=== PATIENT | female | born 1990 | race Caucasian/White ===

== ENCOUNTER 2021-03-19 19:29 | Emergency (ER) | payer OTHER, SELFPAY ==
[2021-03-19 19:38] VITALS: BP 139/105; PULSE 122; RESP 16; TEMP 36.7; O2SAT 99
--- NOTE | 2021-03-19 19:50 | ED.UPPEXIN ---
HPI - Extremity Injury (Upper) General Chief Complaint: Extremity Injury, Upper Stated Complaint: right shoulder Time Seen by Provider: 03/19/21 19:50 Source: patient Mode of arrival: ambulatory Limitations: no limitations History of Present Illness HPI narrative: Yaneli Mckeon is a 30 yo female complaining of left posterior shoulder pain x1 month. She states she started a new job involves lifting and has aggravated an old injury; pain is 8 out of 10, can't raise arm over head without pain Related Data Allergies Allergy/AdvReac Type Severity Reaction Status Date / Time PEACHES Allergy Uncoded 03/19/21 19:40 Review of Systems Review of Systems: Narrative: CONSTITUTIONAL: Denies fever, chills, sweats. EYES: Denies visual changes, redness, discharge. ENT: Denies rhinorrhea, congestion, sore throat, otalgia. CARDIOVASCULAR: Denies chest pain, palpitations, edema. RESPIRATORY: Denies dyspnea, wheezing, cough GASTROINTESTINAL: Denies abdominal pain, nausea, vomiting, diarrhea. GENITOURINARY: Denies dysuria, hematuria, abnormal discharge SKIN: Denies rash or itching. NEUROLOGIC: Denies numbness, or focal weakness. PSYCHIATRIC: Denies anxiety or depression. Left shoulder posterior pain-exacerbation of pain that started a month ago PMFSH Past Medical History Medical History No acute medical problems Family History Family History Other No acute medical problems Social History Social History (Updated 03/19/21 @ 19:54 by Leeanna Elizabeth CNP) Smoking packs per day: 0.5 Smoking cigarettes per day: 10.0 Smoking status: Current every day smoker Tobacco type: cigarettes Alcohol intake: current Gender identity (if verbalized by the patient): Female Comments At time of signature, I agree with nursing past medical, surgical, social and family history. There is no relevant family history pertinent to the presenting complaint. Patient's blood pressure is elevated tonight-from pain but should follow-up with primary care physician in the next week Exam Narrative: Exam Narrative: GENERAL: This is a well-nourished, well-developed patient, in moderate distress. HEAD: normocephalic, atraumatic. EYES: Sclera clear/white. Vision is grossly intact. EARS: External ears normal, Hearing grossly intact. NOSE: External nose normal without nasal discharge, nares without redness, no rhinorrhea. THROAT: Mucous membranes moist, NECK: Neck supple, non-tender CARDIOVASCULAR: Regular rate and rhythm without murmurs, gallops, or rubs. RESPIRATORY: Clear to auscultation. Breath sounds equal bilaterally. No wheezes, rales, or rhonchi. GASTROINTESTINAL: Abdomen soft, non-tender, SKIN: warm, intact with no suspicious lesions or rash, good texture and turgor. NEURO: awake, alert, and oriented to person, place and time. There were no obvious focal neurologic abnormalities. Steady gait EXTREMITIES: Limited range of motion. Left posterior shoulder pain unable to raise arm above 90 degrees overreaction to palpation to posterior rotator cuff but is also tender at the top of trapezius BACK: Nontender without deformity Course Course Emergency Course: Yaneli Mckeon is a 30-year-old female, with poor personal hygiene, who [facility] with posterior left shoulder pain with that has started 1 month ago her current new job exacerbated shoulder pain Started on baclofen 10 mg and 2 at this 2 Tylenol that she has at home Given work excuse for 2 days-should follow-up with primary care physician regarding shoulder pain and also blood pressure Vital Signs Vital signs: Vital Signs Temperature 98.1 F 03/19/21 19:38 Pulse Rate 122 H 03/19/21 19:38 Respiratory Rate 16 03/19/21 19:38 Blood Pressure 139/105 H 03/19/21 19:38 Pulse Oximetry 99 03/19/21 19:38 Temperature 98.1 F 03/19/21 19:38 Pulse Rate 122 H 03/19/21
[2021-03-19 20:03] VITALS: BP 125/87; PULSE 97
== END 2021-03-19 20:03 | disposition home or self-care (01) ==
PROVIDERS: Emergency Provider Nurse Practitioner
DX: S46.912A Strain of unspecified muscle, fascia and tendon at shoulder and upper arm level, left arm, initial encounter (principal); X50.0XXA Overexertion from strenuous movement or load, initial encounter; Y99.0 Civilian activity done for income or pay
CPT/HCPCS: 99213; G0463

== ENCOUNTER 2021-06-03 | Inpatient (IN) | payer OTHER, SELFPAY ==
--- NOTE | ~2021-06-03 | CT_ITS ---
EXAMINATION: CT facial bones w con DATE: 06/03/2021 02:02 INDICATION: Facial swelling. TECHNIQUE: Computed tomography (CT) of the facial bones and maxillofacial region was performed with 7 5 mL Omnipaque 350 intravenous contrast. Automated exposure control and iterative reconstruction tech [employer] were employed. The dose-length product was 394.80 mGy-cm. COMPARISON: None. FINDINGS: There is soft tissue swelling of right face. There are no pathologically enlarged lymph nod es. The orbits are normal. There is mucosal thickening in the paranasal sinuses and dependent fluid i n left maxillary sinus. There is extensive dental disease. There is a 2.0 x 0.4 x 1.4 cm periosteal a bscess adjacent to tooth 5. There is a tooth fragment in the area of the right maxillary molars. Teet h 1-3 are otherwise absent. There are carious lesions of teeth 4, 5, 6, 7, 8, 9, 10, 11, and 12. Teet h 14-16 are absent. There are periapical lucencies adjacent to 5, 6, 7, and 8. Teeth 17 and 18 are ab sent. There are carious lesions of 19, 20, 21, 23, 25, 26, 27, 28, 29, 30, and 31. There are periapic al lucencies of 19, 20, 21, 23, 28, 29, 30, and 31. Tooth 32 is absent. IMPRESSION: 1. Extensive dental disease with 2.0 x 0.4 x 1.4 cm subperiosteal abscess adjacent to tooth #5. Reviewed, dictated and finalized at location A. IMPRESSION: 1. Extensive dental disease with 2.0 x 0.4 x 1.4 cm subperiosteal abscess adjac ent to tooth #5.
--- NOTE | ~2021-06-03 | CT_ITS ---
EXAMINATION: CT facial bones wo con DATE: 06/04/2021 13:46 INDICATION: Dental abscess. Increased swelling. TECHNIQUE: Computed tomography (CT) of the facial bones was performed without intravenous contrast. T he dose-length product was 264.12 mGy-cm. Automated exposure control and iterative reconstruction sakina hnique were employed. COMPARISON: CT dated 06/03/2021 FINDINGS: Study is extremely limited due to lack of contrast. There is extensive dental disease as de scribed in more detail on prior examination with soft tissue swelling of the right face which has inc reased compared with prior examination. There are developing right submandibular and right internal j ugular lymph nodes, likely reactive. The subperiosteal abscess seen on prior examination is not defin itely changed from prior study allowing for lack of contrast. The fatty infiltration extends below th e level of the mandible on the current study. There is maxillary, ethmoid and sphenoid sinusitis. IMPRESSION: 1. Progression of right facial cellulitis extending inferiorly below the level of the mandible on the current study. 2: No significant change to right subperiosteal abscess adjacent tooth #5 allowing f or lack of contrast. 3: Developing lymphadenopathy, likely reactive. Reviewed, dictated and finalized at location A. IMPRESSION: 1. Progression of right facial cellulitis extending inferiorly below the level of the mandible on the current study. 2: No significant change to right subper iosteal abscess adjacent tooth #5 allowing for lack of contrast. 3: Developing lymphadenopathy, likely reactive.
[2021-06-03 00:09] VITALS: BP 123/89; PULSE 111; RESP 19; TEMP 37.1; O2SAT 100
[2021-06-03] MEDS: AMPICILLIN SULB 3 GM/NS 100 ML 3 GM/100 ML VIAL IVPB ×4 (00:57→17:34)
[2021-06-03 01:05] LABS: Basophils Absolute Auto 0.1 K/mm3 (0.0-0.1); Basophils Percent Auto 0.5 % (0.2-1.2); Eosinophils Absolute Auto 0.6 K/mm3 (0-0.3); Eosinophils Percent Auto 5.8 % (0-4.4); Hematocrit 41.3 % (37.0-47.0); Immature Granulocyte Absolute 0.03 K/mm3 (0.00-0.031); Immature Granulocyte Percent A 0.3 % (0-0.5); Lymphocytes Absolute Auto 1.74 K/mm3 (0.9-3.2); Lymphocytes Percent Auto 16.1 % (18.3-44.2); Mean Corpuscular HGB Conc 33.9 g/dl (32-36); Mean Corpuscular Hemoglobin 31.9 pg (26-34); Mean Corpuscular Volume 94.1 fl (80-100); Mean Platelet Volume 10.5 fl (7.4-10.4); Monocytes Absolute Auto 0.5 K/mm3 (0.1-0.6); Monocytes Percent Auto 4.7 % (2.6-8.5); Neutrophils Absolute Auto 7.9 K/mm3 (1.3-6.7); Neutrophils Percent Auto 72.6 % (45.5-73.1); Platelet Count Result 213 k/mm3 (150-375); Red Blood Count 4.39 M/mm3 (4.2-5.4); Red Cell Distribution Width 11.9 % (11.5-14.5); White Blood Count 10.8 K/mm3 (4.5-10.0)
[2021-06-03 01:29] LABS: INR 0.9; Prothrombin Time 12.4 Seconds (11.1-14.7)
[2021-06-03 01:37] LABS: Alanine Aminotransferase 27 U/L (4-35); Albumin Level 4.1 g/dL (3.5-5.1); Alkaline Phosphatase 55 U/L (38-126); Anion Gap 7 mmol/L (8-16); Aspartate Amino Transferase 30 U/L (14-36); Bilirubin,Total 0.7 mg/dL (0.2-1.3); Blood Urea Nitrogen 6 mg/dL (7-17); Calcium 8.4 mg/dL (8.4-10.2); Carbon Dioxide 26 mmol/L (22-30); Chloride 104 mmol/L (98-107); Estimated CRCL calculation 95 ml/min; Estimated Glomerular Filt Rate > 60; Glucose 125 mg/dL (65-105); Potassium 4.2 mmol/L (3.4-5.0); Sodium 137 mmol/L (137-145)
--- NOTE | 2021-06-03 04:27 | ED.DENTAL ---
HPI - Dental/Oral General Chief complaint: Dental/Oral Stated complaint: Right facial swelling, jaw pain Time Seen by Provider: 06/03/21 00:22 Source: RN notes reviewed History of Present Illness HPI Narrative: Patient presents to emergency department from home for right-sided facial swelling. Patient states symptoms began this morning with extensive swelling of the right side of the face she states it is associated with pain in the right upper molars patient states she has a history of bad teeth and has been need to see a dentist but has not seen a dentist she denies any fevers or chills, shortness of breath difficulty swallowing or any other symptoms or concern. The patient does present eating a [facility] bowlof mashed potatoes and corn Related Data Allergies Allergy/AdvReac Type Severity Reaction Status Date / Time PEACHES Allergy Sneezing Uncoded 06/03/21 00:53 Review of Systems Review of Systems: Narrative: Gen.: Denies fevers or chills Eyes: Denies eye pain or visual change ENT: D see HPI Respiratory: Denies shortness of breath or cough CV: Denies chest pain or palpitations GI: Denies abdominal pain nausea, emesis Musculoskeletal: Denies back pain or muscle pain Neuro: Denies headache or weakness Skin: Denies rash Except as documented, all other systems reviewed and negative [facility] Past Medical History Medical History No acute medical problems Family History Family History Other No acute medical problems Social History Social History (Updated 03/19/21 @ 19:54 by Leeanna Elizabeth CNP) Smoking packs per day: 0.5 Smoking cigarettes per day: 10.0 Smoking status: Current every day smoker Tobacco type: cigarettes Alcohol intake: current Gender identity (if verbalized by the patient): Female Exam Narrative: Exam Narrative: APPEARANCE: No acute distress, nontoxic, resting in bed EYES: EOMI HEENT: Normocephalic, atraumatic, TMs clear bilaterally nares patent large amount of swelling over the right cheek into the right eye with the right eye minimally open numerous dental caries with tenderness over teeth to 3 4 and 5 no erythema the gum line no definitive fluctuance airway patent uvula midline tolerating own secretions no erythema exudate posterior pharynx RESPIRATORY: No respiratory distress Clear to auscultation bilaterally with no rhonchi wheezing or rales. CARDIOVASCULAR: Regular rate and rhythm without murmurs rubs or gallops. ABDOMINAL: Soft, nontender, nondistended, no rebound or guarding MUSCULOSKELETAl: Moves all extremities. NEURO: Awake and alert. Following commands, speech normal, no focal deficits SKIN:: Warm, dry. No rashes lesions or abrasions PSYCHIATRIC: Normal affect/mood, Course Course Emergency Course: Called and discussed with facial/plastics Dr. Sutton at [facility]. Reviewed the CT with him and he states that secondary to the small size of the abscess he would not recommend draining as it would be very difficult to find such a small size of fluid recommends the patient be treated with Unasyn and admitted feels the patient may remain in our facility and they are happy to be called if the swelling becomes worse Called and discussed Dr. Campbell presentation work-up agrees with admission at this time Discussed with patient and family results of workup and diagnosis. Discussed need for admission. Patient and family understand and agree to current treatment plan Vital Signs Vital signs: Vital Signs Temperature 98.7 F 06/03/21 00:09 Pulse Rate 111 H 06/03/21 00:09 Respiratory Rate 19 06/03/21 00:09 Blood Pressure 123/89 06/03/21 00:09 Pulse Oximetry 100 06/03/21 00:09 Temperature 98.7 F 06/03/21 00:09 Pulse Rate 111 H 06/03/21 00:09 Respiratory Rate 19 06/03/21 00:09 Blood Pressure 123/89 06/03/21 00:09 Pulse Oximetry 100 06/03/21 00:09 [facility] -
[2021-06-03 04:53] VITALS: BP 134/93; PULSE 86; O2SAT 98
[2021-06-03 05:50] VITALS: BMI 26.0
[2021-06-03 05:58] VITALS: BMI 26.0
--- NOTE | 2021-06-03 06:06 | ADMGEN ---
This patient, Yaneli Mckeon, was admitted to [facility] Surg Room 309-01. Patient/family oriented to hospital policies and general routines including ID bracelet, bed and alarms, visiting hours, pain management, procedures, bathroom and other care routines, personal items, smoking policy, room service/diet, and visiting hours. Information on how to activate the Rapid Response Team has been discussed. Patient/Family are encouraged to report perceived risks to care and to ask questions if they do not understand what they are told or what they should do.
[2021-06-03 06:46] VITALS: BP 117/83; PULSE 70; RESP 20; TEMP 36.1; O2SAT 100
[2021-06-03] MEDS: SACCHAROMYCES BOULARDII 250 MG CAPSULE PO ×2 (09:41→17:34)
--- NOTE | 2021-06-03 12:24 | PM.IMHP ---
H&P: HPI History of Present Illness Date/Time: 06/03/21 12:24 Chief Complaint: facial swelling Narrative: Date of admission: 06/03/2021 date of service: 06/03/2021 Yaneli Mckeon is a healthy 31-year-old female with poor dentition who presented to the emergency department on 06/03/2021 with complaints of facial swelling and pain. Yesterday morning she started having swelling on her right cheek and throughout the day this spread to her jaw, her eye, and her nose. It got to the point that her eye became swollen shut. She had significant pain in the mouth that she rated as 8/10. She has still been able to swallow and manage her oral secretions and denies dysphagia. she has been able to eat soft foods and tolerate liquids. Did not have fever or chills. She did have nausea but did not ever developed vomiting. Her pain is worse if she tries to chew. She feels that her speech is a bit muffled. She also has some right ear fullness. Upon presentation to the emergency department, she was mildly tachycardic with additional vital signs stable, she is afebrile, white blood cell count 10.8 with initial CBC and BMP unremarkable. facial CT showed extensive dental disease with 2.0 x0.4 x 1.4 cm subperiosteal abscess adjacent to tooth #5 with multiple dental caries. The case was discussed by the ED provider with facial/plastic surgeon, Dr. Sutton, who reviewed the imaging. [facility] that the abscess was too small for drainage and felt management with antibiotics was appropriate at this facility. She has been initiated on Unasyn per Dr. Sutton's recommendations. She is being admitted to the hospitalist service for observation. Supervising physician for this history and physical is Dr. Randy Gomez. Review of Systems Review of Systems: Narrative: All systems reviewed with pertinent positives and negatives as per HPI. Additionally, patient sources frontal headache. Denies any visual changes. Denies rhinorrhea. Denies watery or itchy eyes. No nasal congestion. Denies abdominal pain or diarrhea. No shortness of breath. Occasional dry, chronic cough. Denies chest pain or palpitations. She does endorse lightheadedness with standing. Denies any weight changes. She had a regular, formed bowel movement yesterday. She denies any symptoms. She reports frequent episodes of GERD. No episodes of bleeding or bruising. Her last menstrual period was sometime within this past month, though she cannot recall the exact date. She has a Nexplanon for control. She does not have a primary care provider and has not been to a dentist in many years. [facility] Past Medical History Medical History (Updated 06/03/21 @ 12:32 by Isadora Rivers PA-C) Dental caries Surgical History Surgical History (Updated 06/03/21 @ 12:32 by Isadora Rivers PA-C) History of cholecystectomy History of eye surgery Family History Family History (Updated 06/03/21 @ 12:33 by Isadora Rivers PA-C) Mother Schizophrenia Grandparent Heart disease Other No acute medical problems Social History Social History (Updated 06/03/21 @ 12:36 by Isadora Rivers PA-C) Social History: Ms. Mckeon lives at home with her and 2 children. She is independent in her daily activites. 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 She is not established with a PCP. She designates her , Abdoulaye, as her surrogate decision maker. She would like to be a full code. Smoking packs per day: 0.5 Smoking cigarettes per day: 10.0 Years smoked: 12 Smoking pack-years: 6.00 Smoking status: Current every day smoker Tobacco type: cigarettes Alcohol intake: current Alcohol use details: 1 vodka drink daily (equivalent to 1 shot daily) Substance use: current Substance use type: marijuana Last use: Daily marijuana use Living arrangements: with family Gender identity (if verbalized by the patient): Female Spiritual care concerns: No Meds Home Medic
[2021-06-03 12:58] VITALS: O2SAT 97
[2021-06-03 14:00] VITALS: BP 115/75; PULSE 99; RESP 16; TEMP 37; O2SAT 100
[2021-06-03] MEDS: ACETAMINOPHEN 325 MG TABLET 650 MG PO (21:09)
[2021-06-03 22:00] VITALS: BP 105/79; PULSE 84; RESP 18; TEMP 37.1; O2SAT 100
[2021-06-04] MEDS: AMPICILLIN SULB 3 GM/NS 100 ML 3 GM/100 ML VIAL IVPB ×4 (00:26→17:35)
[2021-06-04] MEDS: ACETAMINOPHEN 325 MG TABLET 650 MG PO (05:55)
[2021-06-04 06:00] VITALS: BP 126/79; PULSE 67; RESP 20; TEMP 36.3; O2SAT 100
[2021-06-04 07:07] LABS: Basophils Percent Auto 0.2 % (0.2-1.2); Eosinophils Percent Auto 0.1 % (0-4.4); Hematocrit 36.5 % (37.0-47.0); Hemoglobin 12.3 g/dL (12.0-15.0); Immature Granulocyte Absolute 0.05 K/mm3 (0.00-0.031); Immature Granulocyte Percent A 0.4 % (0-0.5); Lymphocytes Absolute Auto 1.96 K/mm3 (0.9-3.2); Lymphocytes Percent Auto 15.7 % (18.3-44.2); Mean Corpuscular HGB Conc 33.7 g/dl (32-36); Mean Corpuscular Hemoglobin 31.5 pg (26-34); Mean Corpuscular Volume 93.6 fl (80-100); Mean Platelet Volume 10.9 fl (7.4-10.4); Monocytes Absolute Auto 0.6 K/mm3 (0.1-0.6); Monocytes Percent Auto 4.7 % (2.6-8.5); Neutrophils Absolute Auto 9.9 K/mm3 (1.3-6.7); Neutrophils Percent Auto 78.9 % (45.5-73.1); Platelet Count Result 197 k/mm3 (150-375); Red Cell Distribution Width 12.3 % (11.5-14.5); White Blood Count 12.5 K/mm3 (4.5-10.0)
[2021-06-04 07:29] LABS: Alanine Aminotransferase 19 U/L (4-35); Albumin Level 3.5 g/dL (3.5-5.1); Alkaline Phosphatase 61 U/L (38-126); Anion Gap 5 mmol/L (8-16); Aspartate Amino Transferase 19 U/L (14-36); Bilirubin,Total 0.2 mg/dL (0.2-1.3); Blood Urea Nitrogen 6 mg/dL (7-17); Calcium 7.9 mg/dL (8.4-10.2); Carbon Dioxide 25 mmol/L (22-30); Chloride 106 mmol/L (98-107); Estimated CRCL calculation 95 ml/min; Estimated Glomerular Filt Rate > 60; Glucose 121 mg/dL (65-105); Potassium 3.7 mmol/L (3.4-5.0); Sodium 136 mmol/L (137-145)
[2021-06-04 07:31] LABS: CRP 2.9 mg/dL (<1.0)
--- NOTE | 2021-06-04 09:53 | PM.IMPN ---
Progress Note: A&P Assessment and Plan (1) Abscess, dental: Code(s): K04.7 - Periapical abscess without sinus Status: Acute Assessment and Plan: Evident on facial CT. She is afebrile. Mild leukocytosis with slight increase today. Significant increase in pain today. continue Unasyn per recommendations of Dr. Sutton (facial/plastics) at [facility] spoke with Dr. Antony, plastics, at [facility] today regarding increased eye swelling and facial pain. Recommends repeat facial CT to ensure no infectious spread. No eye pain, proptosis, or visual changes. Orbits normal on initial CT. Elevate head of bed and avoid lying on right side to minimize swelling. preliminary blood cultures negative to date Analgesics available as needed for pain She will need dental referral upon discharge (2) Tobacco abuse: Code(s): Z72.0 - Tobacco use Status: Acute Assessment and Plan: Smokes 1/2 ppd. Nicotine patch available as needed Continue to encourage smoking cessation Subjective Date/time seen: 06/04/21 09:53 Interval history: date of service: 06/04/2021 Yaneli Mckeon is a healthy 31-year-old female with poor dentition is seen in follow-up for dental abscess. She is having significant pain today of the right facial region that she rates as 50/10. She feels her pain is not being adequately controlled. she thinks her swelling has improved around her cheek and jaw, but her nose is more swollen and painful. her eyes still swollen, but she is able to see better out of it today. She denies any visual changes including blurred vision or double vision. No eye pain with movement. denies redness or warmth of face. No drainage or purulence in the mouth. No dysphagia or difficulty managing oral secretions. She is tolerating oral intake and is able to eat soft foods. She is tearful and appears anxious, however denies anxiety. Denies nausea, vomiting, fever, or chills. No shortness breath, cough, chest pain, abdominal pain. she has been having regular bowel movements and denies urinary symptoms. Of note, there is a strong scent of cigarette smoke in her hospital room, however she denies smoking. Spoke with RN who did finding a&p mechanic on her bedside table which was removed from the room. Review of Systems Review of Systems: All systems reviewed & are unremarkable except as noted in HPI and below Exam Narrative: Exam Narrative: Ms. Mckeon is a well-nourished, well-appearing 31-year-old female who is lying semi recumbent in bed. She appears uncomfortable, grunting in pain, but is not in acute distress. Neuro: awake, alert and oriented x4, speech clear, no focal neuro deficits noted HEENMT: right-sided facial swelling in the cheek, jaw, and eye. The right eye is swollen shut although she is able to open the eye without pain. PERRL and EOMI. Right nasal area is tender to palpation, without erythema or warmth. Periorbital region, maxillary region, and mandibular region nontender to palpation. Neck: supple, no lymphadenopathy Respiratory: clear to auscultation bilaterally, nonlabored breathing Cardio: regular rate, regular rhythm with S1-S2 Abdomen: nondistended, normoactive bowel sounds, soft, nontender to palpation, Extremities: no edema, erythema, or tenderness to palpation Skin: no rashes or lesions, warm and dry Psych: anxious and tearful, judgment and insight intact Objective Data Vital Signs Vital Signs: Vital Signs - 24 hr 06/03/21 12:58 06/03/21 14:00 06/03/21 22:00 Temperature 98.6 F 98.7 F Pulse Rate 99 84 Respiratory Rate 16 18 Blood Pressure 115/75 105/79 Pulse Oximetry 97 100 100 06/04/21 06:00 Temperature 97.3 F L Pulse Rate 67 Respiratory Rate 20 Blood Pressure 126/79 Pulse Oximetry 100 Intake/Output Intake/Output: Intake & Output 06/01/21 06/02/21 06/03/21 06/04/21 23:59 23:59 23:59 23:59 Intake Total 2060 600 Output Total 1500 Balance 560 600 Meds/Result
[2021-06-04] MEDS: SACCHAROMYCES BOULARDII 250 MG CAPSULE PO ×2 (10:06→17:35)
[2021-06-04] MEDS: HYDROcodone/acetaminophen (*CRX) 7.5-325 MG TABLET 1 TAB PO ×2 (10:06→20:29)
[2021-06-04] MEDS: NICOTINE (*PBKC) 14 MG PATCH 1 PATCH TRANSDERM (10:07)
[2021-06-04] MEDS: MORPHINE SULFATE (*CRX) 2 MG/ML INJ IV PUSH ×2 (12:20→23:16)
--- NOTE | 2021-06-04 12:59 | PC.NURSE ---
Patient screaming and moaning out in pain this am. Hospitalist Isadora notified this morning about adjusting pain medications. Patients room smelled like cigarette smoke and ashes were found in the patients bathroom per housekeeping. At 1006 patient was given [place] 7.5. Reassesed at 1106 patient was sleeping upon entering the room. When asked if the pain medicine worked she stated the pain was not any better. This nurse stated I would see if there was something else available at this time . Patient called nurses station screaming she was leaving AMA because we were not doing anything for her pain. Nurse headed to patients room with morphine to attempt to try a different pain. Patient was found in the hallway screaming she wanted her papers and was leaving. Nurse asked patient to go back into her room to talk and explained that there was another pain medication we could try. Patient screamed that it had been three hours since they had pain medicine. Nurse explained it had only been two hours and that we have to space out medications. Patient agreed to stay and give morpine a try and have her CT scan performed. Patients hyperbaric welder diver was obtained and locked in the closet. Nicotine patch provided this am.
[2021-06-04] MEDS: KETOROLAC 30 MG/ML VIAL (*BKC) IV PUSH (14:15)
[2021-06-04 14:50] VITALS: BP 91/55; PULSE 61; RESP 16; TEMP 36.1; O2SAT 100
[2021-06-04] MEDS: FAMOTIDINE 20 MG TABLET PO (20:13)
[2021-06-04 22:00] VITALS: BP 144/99; PULSE 64; RESP 20; TEMP 36.6; O2SAT 100
[2021-06-05] MEDS: AMPICILLIN SULB 3 GM/NS 100 ML 3 GM/100 ML VIAL IVPB ×3 (00:34→12:54)
[2021-06-05] MEDS: ACETAMINOPHEN 325 MG TABLET 650 MG PO ×2 (00:40→08:08)
[2021-06-05] MEDS: HYDROcodone/acetaminophen (*CRX) 7.5-325 MG TABLET 1 TAB PO (05:58)
[2021-06-05 06:00] VITALS: BP 149/88; PULSE 72; RESP 20; TEMP 36.8; O2SAT 100
[2021-06-05 06:47] LABS: Basophils Percent Auto 0.4 % (0.2-1.2); Eosinophils Absolute Auto 0.2 K/mm3 (0-0.3); Hemoglobin 12.8 g/dL (12.0-15.0); Immature Granulocyte Absolute 0.04 K/mm3 (0.00-0.031); Immature Granulocyte Percent A 0.5 % (0-0.5); Lymphocytes Percent Auto 20.4 % (18.3-44.2); Mean Corpuscular HGB Conc 32.8 g/dl (32-36); Mean Corpuscular Hemoglobin 31.9 pg (26-34); Mean Corpuscular Volume 97.3 fl (80-100); Mean Platelet Volume 11.1 fl (7.4-10.4); Monocytes Absolute Auto 0.6 K/mm3 (0.1-0.6); Monocytes Percent Auto 7.4 % (2.6-8.5); Neutrophils Absolute Auto 5.4 K/mm3 (1.3-6.7); Neutrophils Percent Auto 69.3 % (45.5-73.1); Platelet Count Result 193 k/mm3 (150-375); Red Blood Count 4.01 M/mm3 (4.2-5.4); Red Cell Distribution Width 12.2 % (11.5-14.5); White Blood Count 7.8 K/mm3 (4.5-10.0)
[2021-06-05 06:55] VITALS: TEMP 36.8
[2021-06-05 07:15] LABS: Anion Gap 6 mmol/L (8-16); Blood Urea Nitrogen 6 mg/dL (7-17); Calcium 8.1 mg/dL (8.4-10.2); Carbon Dioxide 26 mmol/L (22-30); Chloride 102 mmol/L (98-107); Estimated CRCL calculation 82 ml/min; Estimated Glomerular Filt Rate > 60; Glucose 95 mg/dL (65-105); Potassium 3.8 mmol/L (3.4-5.0); Sodium 134 mmol/L (137-145)
[2021-06-05] MEDS: NICOTINE (*PBKC) 14 MG PATCH 1 PATCH TRANSDERM (08:09)
[2021-06-05] MEDS: FAMOTIDINE 20 MG TABLET PO (08:09)
[2021-06-05] MEDS: SACCHAROMYCES BOULARDII 250 MG CAPSULE PO (08:09)
[2021-06-05 13:41] VITALS: BP 139/92; PULSE 82; RESP 16; TEMP 37.3; O2SAT 100
--- NOTE | 2021-06-05 13:55 | PM.IMPN ---
Progress Note: A&P Assessment and Plan (1) Abscess, dental: Code(s): K04.7 - Periapical abscess without sinus Status: Acute Assessment and Plan: Evident on facial CT. She is afebrile. Mild leukocytosis with slight increase today. Significant increase in pain today. continue Unasyn per recommendations of Dr. Sutton (facial/plastics) at [facility] spoke with Dr. Antony, plastics, at [facility] on 06/04 regarding increased eye swelling and facial pain. Recommended repeat facial CT to ensure no infectious spread. No eye pain, proptosis, or visual changes. Orbits normal on initial CT. Repeat CT showed progression of facial cellulitis with no significant change of abscess. Elevate head of bed and avoid lying on right side to minimize swelling. preliminary blood cultures negative to date Analgesics available as needed for pain She will need dental referral upon discharge The patient signed out against medical advice. 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 I explained the importance of completing this course of antibiotics to her and explained the risks of untreated abscess/infection although I do not believe she listened to this discussion. (2) Cellulitis of face: Code(s): L03.211 - Cellulitis of face Status: Acute Assessment and Plan: As above. (3) Tobacco abuse: Code(s): Z72.0 - Tobacco use Status: Acute Assessment and Plan: Smokes 1/2 ppd. Nicotine patch during hospitalization Smoking cessation discussed, however patient has no intentions of quitting smoking Additional Plan The patient signed out against medical advice. This document serves as discharge summary. Subjective Date/time seen: 06/05/21 13:55 Interval history: date of service: 06/05/2021 Yaneli Mckeon is a healthy 31-year-old female with poor dentition who is seen in follow-up for dental abscess. On my initial evaluation, she was resting comfortably and said her pain had improved. She was rating as 6/10. She felt that swelling had improved somewhat. She was able to open her eye more and she denied any visual changes. denies nausea, vomiting, fever, or chills. She had no other concerns. I discussed with her that we would keep her in the hospital to continue IV antibiotics until she had further improvement and she was agreeable to this. Approximately 45 minutes later, I received a phone call from the nurse stating that the patient was quite agitated and was requesting paperwork to sign out against medical advice. I was in another area of the hospital at the time but I did speak to the patient on the phone. She was very frustrated saying that no one was helping her, her pain was worse than ever, she was tired of the be from her IV machine, and she wanted to go outside and smoke. I told her I would be prescribing her antibiotics and it is very important that she takes these. Also told her that she should come back to the emergency room promptly should her swelling or pain worsen. I attempted to discuss follow-up care with her, however she hung up the phone. Very shortly after, she became aggressive and was throwing items in her hospital room. She went into the bathroom and was repeatedly shouting leave me alone. Security was present. She then walked to the elevator and left the facility. Review of Systems Review of Systems: All systems reviewed & are unremarkable except as noted in HPI and below Exam Narrative: Exam Narrative: Ms. Mckeon is a well-nourished, well-appearing 31-year-old female who is lying semi recumbent in bed. she appears comfortable and is in no acute respiratory distress. Neuro: awake, alert and oriented x4, speech clear, no focal neuro deficits noted HEENMT: right-sided diffuse facial swelling, seems slightly improved from prior examination. The right eye is swollen shut although sh
--- NOTE | 2021-06-05 14:09 | PC.NURSE ---
Patient called nurses station screaming into phone. Butler unable to hear what patient was saying. Nurse went to the room patient belligerent and requesting AMA papers. Patient signed AMA papers and instructed she could wait for her ride outside. Patient started throwing belongings slamming things around. Patient stumbling around room almost tripping. Code grant called as she continues to throw stuff. Staff arrived to [facility], patient in bathroom at this time. Patient ended up walking straight out.
--- NOTE | 2021-06-05 14:56 | PC.NURSE ---
Housekeeping was in cleaning patients room after she left and found several belongings that were left behind. 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 All belongings were bagged up and sent down to security.
== END 2021-06-05 14:15 | disposition left against medical advice (07) | DRG 114 ==
LOC: ANHED 04:31 → ANH3MEDSUR 05:25
PROVIDERS: Physician Assistant; Admitting Provider Internal Medicine; Emergency Provider Emergency Medicine; Visit Provider Internal Medicine
DX: K04.7 Periapical abscess without sinus (principal); Z72.0 Tobacco use; L03.211 Cellulitis of face
CPT/HCPCS: 36415; 70486; 70487; 80048; 80053; 81025; 85025; 85610; 85730; 86140; 87040; 96365; 96366; 96375; 99285; A9270; G0378; G0379; J0131; J0295; J1100; J1885; J2270; J3370; Q9967

== ENCOUNTER 2021-06-05 20:56 | Emergency (ER) | payer OTHER, SELFPAY ==
[2021-06-05 22:08] VITALS: BP 134/87; PULSE 93; RESP 16; TEMP 36.9; O2SAT 99
--- NOTE | 2021-06-05 23:44 | PC.NURSE ---
Pt. walked out of ed. pt. NAD upon departure. called 2x for triage. no answer
== END 2021-06-06 00:07 | disposition left against medical advice (07) ==
DX: Z53.21 Procedure and treatment not carried out due to patient leaving prior to being seen by health care provider (principal)
CPT/HCPCS: 99199

== ENCOUNTER 2022-01-15 13:17 | Emergency (ER) | payer BC, OTHER, SELFPAY ==
[2022-01-15 13:22] VITALS: BP 132/87; PULSE 109; RESP 16; TEMP 36.4; O2SAT 100
--- NOTE | 2022-01-15 13:26 | ED.DENTAL ---
HPI - Dental/Oral General Chief complaint: Dental/Oral Stated complaint: Mouth swelling Time Seen by Provider: 01/15/22 13:21 Source: patient Mode of arrival: ambulatory Limitations: no limitations History of Present Illness HPI Narrative: 31-year-old female presents to the [facility] with left upper dental pain for approximately 1 week. States over the last 2 days the swelling started. Has a history of very poor dentition. Has not seen a dentist in many years. MD Complaint: tooth pain Related Data Allergies Allergy/AdvReac Type Severity Reaction Status Date / Time PEACHES Allergy Sneezing Uncoded 06/03/21 00:53 Review of Systems Review of Systems: All systems reviewed & are unremarkable except as noted in HPI and below Constitutional: Constitutional: Reports no additional constitutional complaints, Denies chills and Denies fever(s) Eyes: Eyes: Reports no additional eye complaints ENT: Reports as per HPI Comments: Dental pain, left upper Cardiovascular: Cardiovascular: Reports no additional cardiovascular complaints, Denies chest pain and Denies dyspnea Respiratory: Respiratory: Reports no additional respiratory complaints, Denies cough and Denies dyspnea Musculoskeletal: Musculoskeletal: Reports no additional musculoskeletal complaints Integumentary/Breasts: Skin/Breast: Reports system reviewed and no additional complaints, except as docu Neurologic: Reports system reviewed and no additional complaints, except as documented Psychiatric: Psychiatric: Reports no additional psychiatric complaints Allergic/Immunologic: Allergic/Immunologic: Reports no additional allergic/immunologic complaints PMF Past Medical History Medical History (Updated 01/15/22 @ 13:27 by Cristina Rios APRN) Dental caries Tobacco abuse Surgical History Surgical History History of cholecystectomy History of eye surgery Family History Family History Mother Schizophrenia Grandparent Heart disease Other No acute medical problems Social History Social History Social History: Ms. Mckeon lives at home with her and 2 children. She is independent in her daily activites. 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 She is not established with a PCP. She designates her , Abdoulaye, as her surrogate decision maker. She would like to be a full code. Smoking packs per day: 0.5 Smoking cigarettes per day: 10.0 Years smoked: 12 Smoking pack-years: 6.00 Smoking status: Current every day smoker Tobacco type: cigarettes Alcohol intake: current Alcohol use details: 1 vodka drink daily (equivalent to 1 shot daily) Substance use: current Substance use type: marijuana Last use: Daily marijuana use Gender identity (if verbalized by the patient): Female Spiritual care concerns: No Comments At the time of my signature, I reviewed and agree with the nursing past medical, surgical, social, and family history. There is no relevant family history pertinent to the patient complaint. Exam Const: General: healthy appearing, no acute distress and alert Nutritional Appearance: well nourished Orientation/consciousness: patient oriented x3 Limitations: no limitations HENMT: Head: normal to inspection Ears: external ears normal, TM's normal bilaterally and EAC's normal General nose exam: Normal external nose present and Normal nasal mucous membranes and turbinates present Face and sinus: normal facial exam Mouth: Yes Normal oral and palatal mucosa present, Yes lip normal and No muffled voice Teeth and gingiva: abnormal tooth and associated gingiva (Left upper, multiple decayed teeth surrounding erythema and swelling), caries, poor dentition and other (No facial erythema or swelling.) Throat: posterior oropharynx normal, tonsils normal and uv
== END 2022-01-15 13:33 | disposition home or self-care (01) ==
PROVIDERS: Emergency Provider Nurse Practitioner
DX: K04.7 Periapical abscess without sinus (principal); F17.210 Nicotine dependence, cigarettes, uncomplicated; F12.90 Cannabis use, unspecified, uncomplicated
CPT/HCPCS: 99213; G0463

== ENCOUNTER 2022-07-01 09:22 | Emergency (ER) | payer BC, OTHER, SELFPAY ==
[2022-07-01 09:29] VITALS: BP 132/85; PULSE 104; RESP 18; TEMP 36.6; O2SAT 100
--- NOTE | 2022-07-01 09:33 | ED.DENTAL ---
HPI - Dental/Oral General Chief complaint: Dental/Oral Stated complaint: Tooth Pain Time Seen by Provider: 07/01/22 09:33 Source: patient Mode of arrival: ambulatory Limitations: no limitations History of Present Illness HPI Narrative: 32 yo F presents with c/o L sided dental pain, swelling for 2 to 3 days. hx of dental infection to same area. No fever/chills. hx of facial cellulitis related to dental decay, was hospitalized. Has appt with dentist for tooth extraction. Currently no fever. All systems reviewed and negative except as noted above. Related Data Allergies Allergy/AdvReac Type Severity Reaction Status Date / Time PEACHES Allergy Sneezing Uncoded 07/01/22 09:29 Review of Systems Review of Systems: CONSTITUTIONAL: Denies fever, chills, or sweats. EYES: Denies visual changes, redness, or discharge. ENT: Denies rhinorrhea, congestion, sore throat, or otalgia. Reports dental infection with left lower dental pain. CARDIOVASCULAR: Denies chest pain, palpitations, or edema. RESPIRATORY: Denies cough or dyspnea. GASTROINTESTINAL: Denies abdominal pain, nausea, vomiting, or diarrhea. GENITOURINARY: Denies dysuria or hematuria. SKIN: Denies rash or itching. MUSCULOSKELETAL: Denies back pain, joint pain, or myalgia. NEUROLOGIC: Denies headache, numbness, or weakness. PSYCHIATRIC: Denies anxiety or depression. All other systems reviewed are negative, except as documented in HPI. [facility] Past Medical History Medical History (Updated 07/01/22 @ 09:39 by Viviana Sandy NP) Dental caries Tobacco abuse Surgical History Surgical History History of cholecystectomy History of eye surgery Family History Family History Mother Schizophrenia Grandparent Heart disease Other No acute medical problems Social History Social History Social History: Ms. Mckeon lives at home with her and 2 children. She is independent in her daily activites. 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 She is not established with a PCP. She designates her , Abdoulaye, as her surrogate decision maker. She would like to be a full code. Smoking packs per day: 0.5 Smoking cigarettes per day: 10.0 Years smoked: 12 Smoking pack-years: 6.00 Smoking status: Current every day smoker Tobacco type: cigarettes Alcohol intake: current Alcohol use details: 1 vodka drink daily (equivalent to 1 shot daily) Substance use: current Substance use type: marijuana Last use: Daily marijuana use Gender identity (if verbalized by the patient): Female Spiritual care concerns: No Comments At time of signature, agree with nursing past medical, surgical, social and family history. There is no relevant family history pertinent to the presenting complaint. Exam Narrative: GENERAL: This is a well-nourished, well-developed patient, in no apparent distress. HEAD: normocephalic, atraumatic. EYES: PERRL. Sclera clear/white. Vision is grossly intact. EARS: External ears normal NOSE: External nose normal MOUTH: Teeth are missing. Remaining teeth are decayed, brown, broken. Left lower teeth are broken at gumline with surrounding erythema and swelling. NECK: Neck supple, non-tender without lymphadenopathy, masses or thyromegaly. CARDIOVASCULAR: Regular rate and rhythm without murmurs, gallops, or rubs. RESPIRATORY: Clear to auscultation. Breath sounds equal bilaterally. No wheezes, rales, or rhonchi. SKIN: warm, Dry, intact with no suspicious lesions or rash, good texture and turgor. NEURO: awake, alert, and oriented to person, place and time. There were no obvious focal neurologic abnormalities. EXTREMITIES: No joint tenderness, effusion, or edema noted. Course Course Level of Care: Express Care Visit Vital Signs Vital signs: Vital Signs Temperature 36.
== END 2022-07-01 09:45 | disposition home or self-care (01) ==
PROVIDERS: Emergency Provider Nurse Practitioner Family
DX: K04.7 Periapical abscess without sinus (principal); K02.9 Dental caries, unspecified; F17.210 Nicotine dependence, cigarettes, uncomplicated
CPT/HCPCS: 99213; G0463

== ENCOUNTER 2023-07-20 18:48 | Emergency (ER) | payer OTHER, SELFPAY ==
[2023-07-20 19:06] VITALS: BP 139/94; PULSE 109; RESP 16; TEMP 37.1; O2SAT 99
--- NOTE | 2023-07-20 19:06 | ED.DENTAL ---
HPI - Dental/Oral General Chief complaint: Dental/Oral Stated complaint: pain in mouth Time Seen by Provider: 07/20/23 19:07 Source: patient Mode of arrival: ambulatory History of Present Illness HPI Narrative: 33-year-old female presented for complaint of generalized mouth pain over the last week. She endorses a history of poor dentition and has been hospitalized for facial cellulitis as a result of a dental abscess. Reports left upper gum swelling, and a white spot this morning. Patient used a needle to pop the white spot and drain pus. Takes occasional Aleve or drinks alcohol to help her sleep for pain. Denies n/v/d/f/c. Scheduled with dentist 08/16/23. Complaint: tooth pain Related Data Home Medications Medication Instructions Recorded Confirmed Nexplanon 07/20/23 Allergies Allergy/AdvReac Type Severity Reaction Status Date / Time PEACHES Allergy Rash Uncoded 07/20/23 19:15 Review of Systems Review of Systems: CONSTITUTIONAL: Denies body aches, fever, chills ENT: Denies rhinorrhea, congestion, sore throat, or otalgia. Reports dental pain CARDIOVASCULAR: Denies chest pain, palpitations RESPIRATORY: Denies cough or dyspnea. SKIN: Denies rash, itching, or wounds. MUSCULOSKELETAL: Denies myalgia. NEUROLOGIC: Denies headache, numbness, tingling, or weakness. [facility] Past Medical History Medical History Dental caries Tobacco abuse Surgical History Surgical History History of cholecystectomy History of eye surgery Family History Family History Mother Schizophrenia Grandparent Heart disease Other No acute medical problems Social History Social History Social History: Ms. Mckeon lives at home with her and 2 children. She is independent in her daily activites. 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 She is not established with a PCP. She designates her , Abdoulaye, as her surrogate decision maker. She would like to be a full code. Smoking packs per day: 0.5 Smoking cigarettes per day: 10.0 Years smoked: 12 Smoking pack-years: 6.00 Smoking status: Current every day smoker Tobacco type: cigarettes Alcohol intake: current Alcohol use details: 1 vodka drink daily (equivalent to 1 shot daily) Substance use: current Substance use type: marijuana Last use: Daily marijuana use Living arrangements: with family Gender identity (if verbalized by the patient): Female Spiritual care concerns: No Comments At time of signature, I have reviewed and agree with nursing past medical, surgical, social and family history unless otherwise noted. Please see nursing chart for further information. There is no relevant family history pertinent to the presenting complaint Exam Narrative: GENERAL: Appears in mild pain; no acute distress. HEAD: Normocephalic, atraumatic. EYES: EOMI. No redness or drainage. Conjunctivae normal. ENT: Dental pain reported to entire mouth. Small area of erythema and mild swelling to gumline over #11. Poor dentition throughout with missing teeth, remaining teeth are broken and decaying. Mucous membranes pink and moist. NECK: Normal AROM. No lymphadenopathy. no induration below mandible, no neck pain. CHEST: No respiratory distress. Clear to auscultation. HEART: Regular rate and rhythm. No murmur appreciated. SKIN: Warm, dry, no rash. Normal skin turgor. NEURO: No focal deficits. Alert and oriented x3. Gait steady. Course Course Emergency Course: Patient is aware of diagnosis, understands and agrees to treatment plan. Anticipatory guidance given. Patient agrees to follow-up as directed and is aware of reasons to seek care at the emergency department. Portions of this record may have been created wit
== END 2023-07-20 19:24 | disposition home or self-care (01) ==
PROVIDERS: Emergency Provider Nurse Practitioner Family; PCP Emergency Medicine
DX: K02.9 Dental caries, unspecified (principal); F17.210 Nicotine dependence, cigarettes, uncomplicated; F12.90 Cannabis use, unspecified, uncomplicated
CPT/HCPCS: 99213; G0463

== ENCOUNTER 2024-06-01 17:38 | Emergency (ER) | payer OTHER, SELFPAY ==
[2024-06-01 17:51] VITALS: BP 132/70; PULSE 99; RESP 16; TEMP 37.2; O2SAT 100
--- NOTE | 2024-06-01 18:04 | ED.FEMALEGU ---
HPI - Female Genitourinary General Chief complaint: Urogenital-Female Stated complaint: STD testing Time Seen by Provider: 06/01/24 18:04 Source: patient Mode of arrival: ambulatory Limitations: no limitations History of Present Illness HPI Narrative: 34-year-old female presents for STI testing. Patient reports that she had unprotected sex and was told by that individual that he was positive for chlamydia. Patient also reports runny nose, sinus congestion for the past 2-3 days. Not taking any [id number] medications to treat symptoms. All systems reviewed and negative except as noted above. Related Data Home Medications Medication Instructions Recorded Confirmed Nexplanon 07/20/23 Allergies Allergy/AdvReac Type Severity Reaction Status Date / Time PEACHES Allergy Rash Uncoded 07/20/23 19:15 Review of Systems Review of Systems: CONSTITUTIONAL: Denies fever, chills, or sweats. EYES: Denies visual changes, redness, or discharge. ENT: Reports rhinorrhea, congestion. Denies sore throat, or otalgia. CARDIOVASCULAR: Denies chest pain, palpitations, or edema. RESPIRATORY: Denies cough or dyspnea. GASTROINTESTINAL: Denies abdominal pain, nausea, vomiting, or diarrhea. GENITOURINARY: Denies dysuria or hematuria. SKIN: Denies rash or itching. MUSCULOSKELETAL: Denies back pain, joint pain, or myalgia. NEUROLOGIC: Denies headache, numbness, or weakness. PSYCHIATRIC: Denies anxiety or depression. All other systems reviewed are negative, except as documented in HPI. [facility] Past Medical History Medical History Dental caries Tobacco abuse Surgical History Surgical History History of cholecystectomy History of eye surgery Family History Family History Mother Schizophrenia Grandparent Heart disease Other No acute medical problems Social History Social History Social History: Ms. Mckeon lives at home with her and 2 children. She is independent in her daily activites. 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 She is not established with a PCP. She designates her , Abdoulaye, as her surrogate decision maker. She would like to be a full code. Smoking packs per day: 0.5 Smoking cigarettes per day: 10.0 Years smoked: 12 Smoking pack-years: 6.00 Smoking status: Current every day smoker Tobacco type: cigarettes Alcohol intake: current Alcohol use details: 1 vodka drink daily (equivalent to 1 shot daily) Substance use: current Substance use type: marijuana Last use: Daily marijuana use Living arrangements: with family Gender identity (if verbalized by the patient): Female Spiritual care concerns: No Comments At time of signature, agree with nursing past medical, surgical, social and family history. There is no relevant family history pertinent to the presenting complaint. Exam Narrative: GENERAL: This is a well-nourished, well-developed patient, in no apparent distress. HEAD: normocephalic, atraumatic. EYES: PERRL. Sclera clear/white. Vision is grossly intact. EARS: External ears normal, auditory canals clear and without drainage, TMs normal without perforation. Hearing grossly intact. NOSE: External nose normal with no obvious nasal discharge, nares without redness, no rhinorrhea. THROAT: Mucous membranes moist, posterior pharynx clear. NECK: Neck supple, non-tender without lymphadenopathy, masses or thyromegaly. CARDIOVASCULAR: Regular rate and rhythm without murmurs, gallops, or rubs. RESPIRATORY: Clear to auscultation. Breath sounds equal bilaterally. No wheezes, rales, or rhonchi. SKIN: warm, Dry, intact with no suspicious lesions or rash, good texture and turgor. NEURO: awake, alert, and oriented to person, place and time.
[2024-06-01 18:07] LABS: EDUAAPPEAR Clear; EDUABILI Negative; EDUABLOOD Negative; EDUACOLOR1 Yellow; EDUAGLUCOSE Negative; EDUAKETONE Negative; EDUALEUKO Negative; EDUANITRATE Negative; EDUAPH 6.5; EDUAPROTEIN Negative; EDUAUROBILI 0.2
[2024-06-02 20:56] LABS: Trichomonas Vag PCR DETECTED (NOT DETECTE)
[2024-06-02 21:28] LABS: Chlamydia trachomatis NOT DETECTED (NOT DETECTE); Neisseria gonorrhoeae PCR NOT DETECTED (NOT DETECTE)
== END 2024-06-01 18:30 | disposition home or self-care (01) ==
PROVIDERS: Emergency Provider Nurse Practitioner Family
DX: J30.9 Allergic rhinitis, unspecified (principal); Z20.2 Contact with and (suspected) exposure to infections with a predominantly sexual mode of transmission; F17.210 Nicotine dependence, cigarettes, uncomplicated
CPT/HCPCS: 81003; 87491; 87591; 87661; 99213; G0463